=== PATIENT | male | born 1945 | race Caucasian/White ===

== ENCOUNTER 2018-11-01 15:56 | Emergency (ER) | payer OTHER ==
[2018-11-01 16:07] VITALS: RESP 18
[2018-11-01] MEDS ORDERED: LIDOCAINE 1% INJ 10MG/ML (20 ML MDV) SQ ONE (16:19)
--- NOTE | 2018-11-01 16:26 | ED ---
General Adult HPI - General Chief complaint: Wound/Laceration Stated complaint: Thumb laceration Time Seen by Provider: 11/01/18 16:08 Source: patient Mode of arrival: ambulatory Limitations: no limitations - History of Present Illness Initial comments: Patient is a 72-year-old male who presents with a chief complaint of a laceration of his left thumb, at the base. Lacerations 1 cm in length. Patient also complains of a spider bite to his right middle finger, dorsal aspect between the PIP and MCP joints. Laceration happened about 2 hours ago, the patient actually cut himself with a utility knife. His tetanus shot is up-to-date. The spider bite to the finger happened on Thursday. Since that time, the patient states that the swelling is gone down however is still red and tender. Patient denies any fever, chills, nausea or vomiting. - Related Data Home Medications Medication Instructions Recorded Confirmed Amitriptyline HCl [Elavil] 10 mg PO HS 01/03/15 03/08/15 Capsaicin Cream [Trixaicin Cream] 1 applic TOPICAL TID PRN 01/03/15 03/08/15 Donepezil HCl [Aricept] 5 mg PO HS 01/03/15 03/08/15 Gabapentin 1,200 mg PO TID 01/03/15 03/08/15 Ibuprofen [Motrin] 600 mg PO Q8HR PRN 01/03/15 03/08/15 Insulin NPH Human Isophane 50 unit SQ BID 01/03/15 03/08/15 [NovoLIN N] Isosorbide Mononitrate [Isosorbide 30 mg PO DAILY 01/03/15 03/08/15 Mononitrate ER] Lidocaine 5% Patch [Lidoderm] 1 patch TOPICAL DAILY 01/03/15 03/08/15 Losartan Potassium 50 mg PO DAILY 01/03/15 03/08/15 Metoprolol Tartrate [Lopressor] 25 mg PO BID 01/03/15 03/08/15 Nitroglycerin Sl Tabs [Nitrostat] 0.4 mg SUBLINGUAL Q5M PRN 01/03/15 03/08/15 Pravastatin Sodium [Pravachol] 20 mg PO DAILY 01/03/15 03/08/15 Ranitidine HCl [Zantac] 150 mg PO BID 01/03/15 03/08/15 Terazosin HCl 1 mg PO HS 01/03/15 03/08/15 Previous Rx's Medication Instructions Recorded Cyclobenzaprine [Flexeril] 10 mg PO TID #14 tab 03/09/15 Hydrocodone/Acetaminophen [[place] 1 each PO Q6HR PRN #20 tab 03/09/15 5-325] Sulfamethox-Tmp 800-160Mg [Bactrim 1 tab PO Q12HR #14 tab 11/01/18 DS 800-160 mg] Allergies Allergy/AdvReac Type Severity Reaction Status Date / Time morphine Allergy Rash/Hives Verified 03/08/15 19:36 Review of Systems ROS Statement: Those systems with pertinent positive or pertinent negative responses have been documented in the HPI. ROS Other: All systems not noted in ROS Statement are negative. Skin: Reports: lesions Past Medical History Past Medical History: Chest Pain / Angina, CVA/TIA, Dementia, Diabetes Mellitus, Hyperlipidemia, Hypertension, Myocardial Infarction ([place]) Additional Past Medical History / Comment(s): back pain, AAA Last Myocardial Infarction Date:: 2010 History of Any Multi-Drug Resistant Organisms: None Reported Past Surgical History: Back Surgery, Heart Catheterization With Stent, Joint Replacement, Orthopedic Surgery Past Anesthesia/Blood Transfusion Reactions: No Reported Reaction Date of Last Stent Placement:: 1999 Past Psychological History: Depression, PTSD Smoking Status: Former smoker Past Alcohol Use History: None Reported Past Drug Use History: None Reported General Exam Limitations: no limitations General appearance: alert, in no apparent distress Head exam: Present: atraumatic, normocephalic Eye exam: Present: normal appearance ENT exam: Present: normal exam Neck exam: Present: normal inspection Respiratory exam: Present: normal lung sounds bilaterally. Absent: respiratory distress, wheezes Cardiovascular Exam: Present: regular rate, normal rhythm GI/Abdominal exam: Present: soft. Absent: distended, tenderness Rectal exam: Present: deferred Extremities exam: Present: normal inspection, other (Patient is a one similar laceration at the base of the left thumb, on the dorsal side. He has cellulitis overlying the right middle finger on the dorsum.) Left Neuro motor exam: Present: wrist extension intact, thumb opposition intact Neurosensory exam: Present: radial nerve intact, ulnar nerve intact, median nerve intact Vascular: Present: normal capillary refill, radial pulse. Absent: vascular compromise Course Vital Signs 11/01/18 16:02 Temperature 97.6 F Pulse Rate 74 Respiratory 18 Rate Blood Pressure 120/73 O2 Sat by Pulse 95 Oximetry Procedures - Incision & Drainage Site: hand Size (cm): 1 Anesthetic Used: lidocaine 1% I&D Cleaning Method: Alcohol Wipe Sterile Field Used?: No Scalpel Used: #11 I&D Drainage Obtained: Pus, Blood Culture Obtained?: No Patient Tolerated Procedure: well - Laceration Laceration #1 Site: hand Description: linear Depth: simple, single layer Anesthetic Used: lidocaine 1% Anesthesia Technique: local infiltration Pre-repair: wound explored, irrigated extensively Type of Sutures: nylon Size of Sutures: 4-0 Number of Sutures: 2 Technique: simple, interrupted Patient Tolerated Procedure: well Medical Decision Making - Medical Decision Making Patient presents with a chief complaint of laceration and spider bite. On initial evaluation, vitals are stable, patient is in no acute distress. His tetanus status was updated last year. Patient will require repair the laceration, see procedure note. I&D was performed over the cellulitis, refer to procedure note. Patient started on doxycycline and given explicit instructions to return to the emergency department if the finger swelling or pain gets worse, he notes drainage, or notes tracking up his arm. patient discharged in stable condition. He verbalized understanding of discharge instructions. follow up with PCP in 1-2 days, return to the ED if symptoms worsen or change. Disposition Clinical Impression: Abscess of finger of right hand, Accidental laceration Disposition: HOME SELF-CARE Condition: Good Instructions (If sedation given, give patient instructions): Abscess Incision and Drainage (ED), Abscess (ED) Prescriptions: Sulfamethox-Tmp 800-160Mg [Bactrim DS 800-160 mg] 1 tab PO Q12HR #14 tab Is patient prescribed a controlled substance at d/c from ED?: No Referrals: [facility],Clinic [Primary Care Provider] - 1-2 days
[2018-11-01 17:33] VITALS: BP 118/96; PULSE 67; TEMP 98.4
== END 2018-11-01 17:32 | disposition home or self-care (01) ==
LOC: EC 15:56
DX: S61.012A Laceration without foreign body of left thumb without damage to nail, initial encounter (principal); L02.511 Cutaneous abscess of right hand; E11.9 Type 2 diabetes mellitus without complications; E78.5 Hyperlipidemia, unspecified; I10 Essential (primary) hypertension; I25.2 Old myocardial infarction; F03.90 Unspecified dementia, unspecified severity, without behavioral disturbance, psychotic disturbance, mood disturbance, and anxiety; F32.9 Major depressive disorder, single episode, unspecified; F43.10 Post-traumatic stress disorder, unspecified; Z86.73 Personal history of transient ischemic attack (TIA), and cerebral infarction without residual deficits; Z87.891 Personal history of nicotine dependence; Z79.4 Long term (current) use of insulin; Z79.899 Other long term (current) drug therapy; Z88.5 Allergy status to narcotic agent; Z95.5 Presence of coronary angioplasty implant and graft; W26.0XXA Contact with knife, initial encounter
CPT/HCPCS: 99282; 12001; 10060; J2001

== ENCOUNTER 2018-11-04 19:11 | Emergency (ER) | payer OTHER ==
[2018-11-04] MEDS ORDERED: FAMOTIDINE 20 MG TAB PO STA (21:35)
[2018-11-04] MEDS ORDERED: methylPREDNISolone SOD SUCCI 125 MG/2 ML VIAL IM ONE (21:35)
[2018-11-04] MEDS ORDERED: diphenhydrAMINE 50 MG/ML 1 ML VIAL IM STA (21:36)
--- NOTE | 2018-11-04 22:43 | ED ---
Skin/Abscess/FB HPI - General Chief complaint: Skin/Abscess/Foreign Body Stated complaint: med reaction-rash & blisters Source: patient Mode of arrival: ambulatory Limitations: no limitations - History of Present Illness Initial comments: 72-year-old male presenting today for chief complaint of rash. Patient states he was a start Bactrim for finger infection after laceration. He denies history of MRSA. Patient states that today he noticed some blisters on the skin at a random distribution of this chest and arm. Patient denies any tongue swelling or involvement lip swelling nausea vomiting abdominal pain difficulty breathing compressive symptoms or fever. She states the lesions are itchy. Patient states he feels fine. Remaining review of system negative. - Related Data Home Medications Medication Instructions Recorded Confirmed Amitriptyline HCl [Elavil] 10 mg PO HS 01/03/15 03/08/15 Capsaicin Cream [Trixaicin Cream] 1 applic TOPICAL TID PRN 01/03/15 03/08/15 Donepezil HCl [Aricept] 5 mg PO HS 01/03/15 03/08/15 Gabapentin 1,200 mg PO TID 01/03/15 03/08/15 Ibuprofen [Motrin] 600 mg PO Q8HR PRN 01/03/15 03/08/15 Insulin NPH Human Isophane 50 unit SQ BID 01/03/15 03/08/15 [NovoLIN N] Isosorbide Mononitrate [Isosorbide 30 mg PO DAILY 01/03/15 03/08/15 Mononitrate ER] Lidocaine 5% Patch [Lidoderm] 1 patch TOPICAL DAILY 01/03/15 03/08/15 Losartan Potassium 50 mg PO DAILY 01/03/15 03/08/15 Metoprolol Tartrate [Lopressor] 25 mg PO BID 01/03/15 03/08/15 Nitroglycerin Sl Tabs [Nitrostat] 0.4 mg SUBLINGUAL Q5M PRN 01/03/15 03/08/15 Pravastatin Sodium [Pravachol] 20 mg PO DAILY 01/03/15 03/08/15 Ranitidine HCl [Zantac] 150 mg PO BID 01/03/15 03/08/15 Terazosin HCl 1 mg PO HS 01/03/15 03/08/15 Previous Rx's Medication Instructions Recorded Cyclobenzaprine [Flexeril] 10 mg PO TID #14 tab 03/09/15 Hydrocodone/Acetaminophen [[place] 1 each PO Q6HR PRN #20 tab 03/09/15 5-325] Sulfamethox-Tmp 800-160Mg [Bactrim 1 tab PO Q12HR #14 tab 11/01/18 DS 800-160 mg] Cephalexin [Keflex] 500 mg PO Q6HR 7 Days #28 cap 11/04/18 diphenhydrAMINE [Benadryl] 25 mg PO BID PRN 5 Days #10 capsule 11/04/18 predniSONE 20 mg PO DAILY 5 Days #5 tab 11/04/18 Allergies Allergy/AdvReac Type Severity Reaction Status Date / Time morphine Allergy Rash/Hives Verified 03/08/15 19:36 Review of Systems ROS Statement: Those systems with pertinent positive or pertinent negative responses have been documented in the HPI. ROS Other: All systems not noted in ROS Statement are negative. Past Medical History Past Medical History: Chest Pain / Angina, CVA/TIA, Dementia, Diabetes Mellitus, Hyperlipidemia, Hypertension, Myocardial Infarction ([place]) Additional Past Medical History / Comment(s): back pain, AAA Last Myocardial Infarction Date:: 2010 History of Any Multi-Drug Resistant Organisms: None Reported Past Surgical History: Back Surgery, Heart Catheterization With Stent, Joint Replacement, Orthopedic Surgery Past Anesthesia/Blood Transfusion Reactions: No Reported Reaction Date of Last Stent Placement:: 1999 Past Psychological History: Depression, PTSD Smoking Status: Former smoker Past Alcohol Use History: None Reported Past Drug Use History: None Reported General Exam - General Exam Comments Initial Comments: General: The patient is awake and alert, in no distress, and does not appear acutely ill. Eye: Pupils are equal, round and reactive to light, extra-ocular movements are intact. No nystagmus. There is normal conjunctiva bilaterally. No signs of icterus. Ears, nose, mouth and throat: There are moist mucous membranes and no oral lesions. Neck: The neck is supple, there is no tenderness or JVD. Cardiovascular: There is a regular rate and rhythm. No murmur, rub or gallop is appreciated. Respiratory: Lungs are clear to auscultation, respirations are non-labored, breath sounds are equal. No wheezes, stridor, rales, or rhonchi. Gastrointestinal: Soft, non-distended, non-tender abdomen without masses or organomegaly noted. There is no rebound or guarding present. Musculoskeletal: Normal ROM, no tenderness. Strength 5/5. Sensation intact. Pulses equal bilaterally 2+. Neurological: A&O x 3. CN II-XII intact, There are no obvious motor or sensory deficits. Coordination appears grossly intact. Speech is normal. Skin: Skin is warm and dry. Erythematous wheals and random distribution of her chest and back. On upper extremity bilaterally. Small blister left shoulder. No other blistered lesions. Psychiatric: Cooperative, appropriate mood & affect, normal judgment. Limitations: no limitations Course Vital Signs 11/04/18 11/04/18 20:04 22:55 Temperature 97.6 F 98.2 F Pulse Rate 74 69 Respiratory 20 18 Rate Blood Pressure 124/77 124/82 O2 Sat by Pulse 96 97 Oximetry Medical Decision Making - Medical Decision Making 72-year-old male presented for antibiotic drug reaction. Patient denies any other new medications. Patient states the areas are itchy. Patient does not show any signs of anaphylaxis. No oral involvement. Patient has no vomiting abdominal pain diarrhea. No fever. Patient appears well no signs of acute distress. Patient is a diabetic. Patient was given steroids I did educate. Patient on risk of increased blood glucose. Patient states he will monitor her glucose more closely at home. Patient was given Benadryl and Pepcid. Patient states he no longer has itching. Patient was monitored in the emergency department. Patient symptoms have not worsened. Slight improvement of rash. At this time after discussing case by attending provider Dr. Ashford I feel patient is stable for discharge with outpatient priamary f/u, discontinuation of medication, new medications for infection, and use of benadryl, pepcid, a low dose steroid. If glucose is uncontrolled on steroid and rash is improving i recommended not completing steroid course. Return parameters were discussed at length the patient which included worsening rash or any signs of compressive symptoms or mouth involvement she verbalizes understood appear patient was discharged appearing well Disposition Clinical Impression: Allergic reaction, Allergy to antibiotic Disposition: HOME SELF-CARE Condition: Good Instructions (If sedation given, give patient instructions): Antibiotic Medication Allergy (ED) Additional Instructions: Please use medication as discussed. Please follow-up with family doctor in the next 24 hours, please discontinue BACTRIM, please use keflex. If you finger infection is worsening, rash is worsening, increasing number of lesions, lip/tongue swelling, vomiting/diarrhea or difficulty breathing please present immediately to the emergency department. Please return to emergency room if the symptoms increase or worsen or for any other concerns. Prescriptions: diphenhydrAMINE [Benadryl] 25 mg PO BID PRN 5 Days #10 capsule PRN Reason: Itching Cephalexin [Keflex] 500 mg PO Q6HR 7 Days #28 cap predniSONE 20 mg PO DAILY 5 Days #5 tab Is patient prescribed a controlled substance at d/c from ED?: No Referrals: [facility],Clinic [Primary Care Provider] - 1-2 days Time of Disposition: 22:43
[2018-11-04 22:56] VITALS: BP 124/82; PULSE 69; RESP 18; TEMP 98.2
== END 2018-11-04 22:55 | disposition home or self-care (01) ==
LOC: EC 19:11
DX: T36.95XA Adverse effect of unspecified systemic antibiotic, initial encounter (principal); E11.9 Type 2 diabetes mellitus without complications; I10 Essential (primary) hypertension; E78.5 Hyperlipidemia, unspecified; I25.2 Old myocardial infarction; Z79.4 Long term (current) use of insulin; Z79.899 Other long term (current) drug therapy; Z88.5 Allergy status to narcotic agent; Z87.891 Personal history of nicotine dependence; Z95.5 Presence of coronary angioplasty implant and graft; Z86.73 Personal history of transient ischemic attack (TIA), and cerebral infarction without residual deficits
CPT/HCPCS: 99282; 96372 ×2; J1200; J2930

== ENCOUNTER 2023-04-04 19:29 | Emergency (ER) | payer OTHER ==
--- NOTE | 2023-04-04 20:54 | XR ---
EXAMINATION TYPE: XR chest 2V DATE OF EXAM: 04/04/2023 COMPARISON: 01/03/2015 INDICATION: Shortness of breath TECHNIQUE: Frontal and lateral views of the chest are obtained. FINDINGS: The heart size is normal. The pulmonary vasculature is normal. The lungs are clear. IMPRESSION: 1. No acute pulmonary process.
--- NOTE | 2023-04-04 23:33 | ED ---
URI HPI - General Chief Complaint: Upper Respiratory Infection Stated Complaint: SOB/Vomiting Time Seen by Provider: 04/04/23 21:48 Source: patient Mode of arrival: wheelchair Limitations: no limitations - History of Present Illness Initial Comments: This patient is a 77-year-old man who presents to evaluation for constellation of symptoms that had started on Thursday. The patient states that he began having a little bit of cough and rhinorrhea. He then noted onset as well of fever, body aches. He did have an episode of vomiting. He states he does tolerate oral intake. Patient denies dyspnea. Cough is nonproductive. No change in bowel movements or urination. MD Complaint: fever, cough, nasal congestion Onset/Timin -: days(s) Consistency: constant Improves With: nothing Worsens With: nothing Associated Symptoms: myalgias, vomiting Treatments Prior to Arrival: Acetaminophen - Related Data Home Medications Medication Instructions Recorded Confirmed Amitriptyline HCl [Elavil] 10 mg PO HS 01/03/15 03/08/15 Capsaicin Cream [Trixaicin Cream] 1 applic TOPICAL TID PRN 01/03/15 03/08/15 Donepezil HCl [Aricept] 5 mg PO HS 01/03/15 03/08/15 Gabapentin 1,200 mg PO TID 01/03/15 03/08/15 Ibuprofen [Motrin] 600 mg PO Q8HR PRN 01/03/15 03/08/15 Insulin NPH Human Isophane 50 unit SQ BID 01/03/15 03/08/15 [NovoLIN N] Isosorbide Mononitrate [Isosorbide 30 mg PO DAILY 01/03/15 03/08/15 Mononitrate ER] Lidocaine 5% Patch [Lidoderm] 1 patch TOPICAL DAILY 01/03/15 03/08/15 Losartan Potassium 50 mg PO DAILY 01/03/15 03/08/15 Metoprolol Tartrate [Lopressor] 25 mg PO BID 01/03/15 03/08/15 Nitroglycerin Sl Tabs [Nitrostat] 0.4 mg SUBLINGUAL Q5M PRN 01/03/15 03/08/15 Pravastatin Sodium [Pravachol] 20 mg PO DAILY 01/03/15 03/08/15 Ranitidine HCl [Zantac] 150 mg PO BID 01/03/15 03/08/15 Terazosin HCl 1 mg PO HS 01/03/15 03/08/15 Previous Rx's Medication Instructions Recorded Cyclobenzaprine [Flexeril] 10 mg PO TID #14 tab 03/09/15 Hydrocodone/Acetaminophen [[place] 1 each PO Q6HR PRN #20 tab 03/09/15 5-325] Sulfamethox-Tmp 800-160Mg [Bactrim 1 tab PO Q12HR #14 tab 11/01/18 DS 800-160 mg] Cephalexin [Keflex] 500 mg PO Q6HR 7 Days #28 cap 11/04/18 diphenhydrAMINE [Benadryl] 25 mg PO BID PRN 5 Days #10 capsule 11/04/18 predniSONE [Deltasone] 20 mg PO DAILY 5 Days #5 tab 11/04/18 Nirmatrelvir/Ritonavir [Paxlovid 1 each PO ONCE #1 pack 04/04/23 2X150 mg-100 mg (Eua)] Allergies Allergy/AdvReac Type Severity Reaction Status Date / Time morphine Allergy Rash/Hives Verified 03/08/15 19:36 Review of Systems ROS Statement: Those systems with pertinent positive or pertinent negative responses have been documented in the HPI. ROS Other: All systems not noted in ROS Statement are negative. Constitutional: Reports: fever. Denies: chills, weakness ENT: Reports: congestion Respiratory: Reports: cough. Denies: dyspnea, wheezes Cardiovascular: Denies: chest pain, palpitations, edema, syncope Gastrointestinal: Reports: vomiting. Denies: abdominal pain, diarrhea, constipation Genitourinary: Denies: dysuria, hematuria Musculoskeletal: Reports: myalgia. Denies: back pain Skin: Denies: rash Neurological: Reports: headache. Denies: weakness, numbness Past Medical History Past Medical History: Chest Pain / Angina, CVA/TIA, Dementia, Diabetes Mellitus, Hyperlipidemia, Hypertension, Myocardial Infarction ([place]) Additional Past Medical History / Comment(s): back pain, AAA Last Myocardial Infarction Date:: 2010 History of Any Multi-Drug Resistant Organisms: None Reported Past Surgical History: Back Surgery, Heart Catheterization With Stent, Joint Replacement, Orthopedic Surgery Past Anesthesia/Blood Transfusion Reactions: No Reported Reaction Date of Last Stent Placement:: 1999 Past Psychological History: Depression, PTSD Past Alcohol Use History: None Reported Past Drug Use History: None Reported General Exam Limitations: no limitations General appearance: alert, in no apparent distress Head exam: Present: atraumatic, normocephalic Eye exam: Present: normal appearance. Absent: scleral icterus, conjunctival injection ENT exam: Present: normal oropharynx Neck exam: Present: normal inspection, full ROM Respiratory exam: Present: normal lung sounds bilaterally. Absent: respiratory distress, wheezes, rales, rhonchi, stridor, accessory muscle use Cardiovascular Exam: Present: regular rate, normal rhythm, normal heart sounds. Absent: systolic murmur, diastolic murmur, rubs, gallop GI/Abdominal exam: Present: soft. Absent: distended, tenderness, guarding, rebound, rigid, mass Extremities exam: Present: normal inspection, normal capillary refill. Absent: pedal edema, calf tenderness Back exam: Present: normal inspection Neurological exam: Present: alert Skin exam: Present: warm, dry, intact, normal color. Absent: rash Course Vital Signs 04/04/23 04/04/23 04/04/23 19:34 22:30 23:21 Temperature 101.1 F H Pulse Rate 97 116 H Respiratory 18 22 19 Rate Blood Pressure 169/81 101/81 O2 Sat by Pulse 97 93 L Oximetry 04/04/23 23:26 Temperature 100.4 F H Pulse Rate Respiratory Rate Blood Pressure O2 Sat by Pulse Oximetry Medical Decision Making - Medical Decision Making The patient had chest x-ray which I interpreted as negative for acute infiltrate, pneumothorax, congestive heart failure Was pt. sent in by a medical professional or institution (, PA, ANALYTICS ARCHITECT, urgent care, hospital, or [facility]...) When possible be specific @ -[No] Did you speak to anyone other than the patient for history (EMS, parent, family, police, friend...)? What history was obtained from this source @ -[No] Did you review nursing and triage notes (agree or disagree)? Why? @ -[I reviewed and agree with nursing and triage notes] Were old charts reviewed (outside hosp., previous admission, EMS record, old EKG, old radiological studies, urgent care reports/EKG's, [facility] records)? Report findings @ -[No old charts were reviewed] Differential Diagnosis (chest pain, altered mental status, abdominal pain women, abdominal pain men, vaginal bleeding, weakness, fever, dyspnea, syncope, headache, dizziness, GI bleed, back pain, seizure, CVA, palpatations, mental health, musculoskeletal)? @ -[Differential Dyspnea: Coronary syndrome, arrhythmia, tamponade, asthma, COPD, pulmonary embolism, pneumonia, pneumothorax, pulmonary effusion, anaphylaxis, diabetic ketoacidosis, flailed chest, pulmonary contusion, diaphragmatic rupture, anemia, neuromuscular, this is not meant to be an all-inclusive list. EKG interpreted by me (3pts min.). @ -[As above] X-rays interpreted by me (1pt min.). @ -[I interpreted as above CT interpreted by me (1pt min.). @ -[None done] U/S interpreted by me (1pt. min.). @ -[None done] What testing was considered but not performed or refused? (CT, X-rays, U/S, labs)? Why? @ -[None] What meds were considered but not given or refused? Why? @ -[None] Did you discuss the management of the patient with other professionals (professionals i.e. , PA, ANALYTICS ARCHITECT, lab, RT, psych nurse, social secretary, shot packer, teacher, house officer, case coordinator)? Give summary @ -[No] Was smoking cessation discussed for >3mins.? @ -[No] Was critical care preformed (if so, how long)? @ -[No] Were there social determinants of health that impacted care today? How? (Homelessness, low income, unemployed, alcoholism, drug addiction, transportation, low edu. Level, literacy, decrease access to med. care, detention, rehab)? @ -[No] Was there de-escalation of care discussed even if they declined (Discuss DNR or withdrawal of care, Hospice)? DNR status @ -[No] What co-morbidities impacted this encounter? (DM, HTN, Smoking, COPD, CAD, Cancer, CVA, ARF, Chemo, Hep., AIDS, mental health diagnosis, sleep apnea, morbid obesity)? @ -[None] Was patient admitted / discharged? Hospital course, mention meds given and route, prescriptions, significant lab abnormalities, going to OR and other pertinent info. @ -[Patient is 77-year-old man who was found to have COVID-19 infection. The patient saturation numbers are acceptable and he is not feeling dyspneic. We discussed appropriate further care and follow-up and he would like to try outpatient medical treatment. Undiagnosed new problem with uncertain prognosis? @ -[No] Drug Therapy requiring intensive monitoring for toxicity (Heparin, Nitro, Insulin, Cardizem)? @ -[No] Were any procedures done? @ -[No] Diagnosis/symptom? @ -[Acute COVID-19 infection Acute, or Chronic, or Acute on Chronic? @ -[Acute Uncomplicated (without systemic symptoms) or Complicated (systemic symptoms)? @ -Uncomplicated Side effects of treatment? @ -[No] Exacerbation, Progression, or Severe Exacerbation? @ -[No] Poses a threat to life or bodily function? How? (Chest pain, [place], [place], pneumonia, PE, COPD, DKA, ARF, appy, cholecystitis, CVA, Diverticulitis, Homicidal, Dia cidal, threat to staff... and all critical care pts) @ -[Yes, Covid infection can progress to become life-threatening, we discussed the appropriate outpatient care as well as return parameters. - Lab Data Lab Results 04/04/23 Range/Units 19:41 Influenza Type A (PCR) Not Detected (Not Detectd) Influenza Type B (PCR) Not Detected (Not Detectd) RSV (PCR) Not Detected (Not Detectd) SARS-CoV-2 (PCR) Detected A (Not Detectd) Disposition Clinical Impression: COVID-19 Disposition: HOME SELF-CARE Condition: Good Prescriptions: Nirmatrelvir/Ritonavir [Paxlovid 2X150 mg-100 mg (Eua)] 1 each PO ONCE #1 pack Is patient prescribed a controlled substance at d/c from ED?: No Referrals: [facility],Clinic [Primary Care Provider] - 1-2 days
[2023-04-04 23:38] VITALS: BP 101/81; PULSE 116; RESP 19; TEMP 100.4
== END 2023-04-04 23:27 | disposition home or self-care (01) ==
LOC: EC 19:29
DX: U07.1 COVID-19 (principal); E11.9 Type 2 diabetes mellitus without complications; I10 Essential (primary) hypertension; I25.2 Old myocardial infarction; E78.5 Hyperlipidemia, unspecified; F03.90 Unspecified dementia, unspecified severity, without behavioral disturbance, psychotic disturbance, mood disturbance, and anxiety; F32.A Depression, unspecified; Z79.4 Long term (current) use of insulin; Z79.899 Other long term (current) drug therapy; Z88.5 Allergy status to narcotic agent; Z86.73 Personal history of transient ischemic attack (TIA), and cerebral infarction without residual deficits; Z95.5 Presence of coronary angioplasty implant and graft
CPT/HCPCS: 71046; 87636; 99285

== ENCOUNTER 2023-05-05 18:07 | Emergency (ER) | payer OTHER ==
--- NOTE | 2023-05-05 18:49 | ED ---
General Adult HPI - General Source: RN notes reviewed <Pita Mendoza - Last Filed: 05/05/23 18:48> <Sarah Salazar - Last Filed: 05/05/23 23:07> - General Stated complaint: dizzy passing out when standing Time Seen by Provider: 05/05/23 18:48 - History of Present Illness Initial comments: 77-year-old male with a past medical history significant for CVA presents the emergency department with a chief complaint of syncope. Patient reports that he had a syncopal episode where he was unresponsive for approximately 1 minute. He reports that he still feels persistent dizziness. Denies hitting his head. He does report he is on Eliquis. (Pita Mendoza) 77-year-old male presenting with chief complaint of syncopal episode. Patient states that he was walking and talking to his grandson when he started to feel dizzy, he states that he was able to somewhat catch himself when he was falling. He denies any head injury, patient is on eliquis. Patient reports dizziness with turning his head or transferring from a laying to sitting position. No chest pain or difficulty breathing. No numbness, tingling, palpitations, nausea, vomiting, headache, vision or hearing changes. (Sarah Salazar) - Related Data Home Medications Medication Instructions Recorded Confirmed Amitriptyline HCl [Elavil] 10 mg PO HS 01/03/15 03/08/15 Capsaicin Cream [Trixaicin Cream] 1 applic TOPICAL TID PRN 01/03/15 03/08/15 Donepezil HCl [Aricept] 5 mg PO HS 01/03/15 03/08/15 Gabapentin 1,200 mg PO TID 01/03/15 03/08/15 Ibuprofen [Motrin] 600 mg PO Q8HR PRN 01/03/15 03/08/15 Insulin NPH Human Isophane 50 unit SQ BID 01/03/15 03/08/15 [NovoLIN N] Isosorbide Mononitrate [Isosorbide 30 mg PO DAILY 01/03/15 03/08/15 Mononitrate ER] Lidocaine 5% Patch [Lidoderm] 1 patch TOPICAL DAILY 01/03/15 03/08/15 Losartan Potassium 50 mg PO DAILY 01/03/15 03/08/15 Metoprolol Tartrate [Lopressor] 25 mg PO BID 01/03/15 03/08/15 Nitroglycerin Sl Tabs [Nitrostat] 0.4 mg SUBLINGUAL Q5M PRN 01/03/15 03/08/15 Pravastatin Sodium [Pravachol] 20 mg PO DAILY 01/03/15 03/08/15 Ranitidine HCl [Zantac] 150 mg PO BID 01/03/15 03/08/15 Terazosin HCl 1 mg PO HS 01/03/15 03/08/15 Previous Rx's Medication Instructions Recorded Cyclobenzaprine [Flexeril] 10 mg PO TID #14 tab 03/09/15 Hydrocodone/Acetaminophen [[place] 1 each PO Q6HR PRN #20 tab 03/09/15 5-325] Sulfamethox-Tmp 800-160Mg [Bactrim 1 tab PO Q12HR #14 tab 11/01/18 DS 800-160 mg] Cephalexin [Keflex] 500 mg PO Q6HR 7 Days #28 cap 11/04/18 diphenhydrAMINE [Benadryl] 25 mg PO BID PRN 5 Days #10 capsule 11/04/18 predniSONE [Deltasone] 20 mg PO DAILY 5 Days #5 tab 11/04/18 Nirmatrelvir/Ritonavir [Paxlovid 1 each PO ONCE #1 pack 04/04/23 2X150 mg-100 mg (Eua)] Meclizine [Antivert] 25 mg PO BID PRN #10 tab 05/05/23 Allergies Allergy/AdvReac Type Severity Reaction Status Date / Time morphine Allergy Rash/Hives Verified 03/08/15 19:36 oxycodone AdvReac Confusion Verified 05/05/23 19:30 Review of Systems ROS Other: All systems not noted in ROS Statement are negative. <Pita Mendoza - Last Filed: 05/05/23 18:48> ROS Other: All systems not noted in ROS Statement are negative. <Sarah Salazar - Last Filed: 05/05/23 23:07> ROS Statement: Those systems with pertinent positive or pertinent negative responses have been documented in the HPI. Past Medical History Past Medical History: Chest Pain / Angina, CVA/TIA, Dementia, Diabetes Mellitus, Hyperlipidemia, Hypertension, Myocardial Infarction (OK) Additional Past Medical History / Comment(s): back pain, AAA Last Myocardial Infarction Date:: 2010 History of Any Multi-Drug Resistant Organisms: None Reported Past Surgical History: Back Surgery, Heart Catheterization With Stent, Joint Replacement, Orthopedic Surgery Past Anesthesia/Blood Transfusion Reactions: No Reported Reaction Date of Last Stent Placement:: 1999 Past Psychological History: Depression, PTSD Past Alcohol Use History: None Reported Past Drug Use History: None Reported <Pita Mendoza - Last Filed: 05/05/23 18:48> General Exam <Pita Mendoza - Last Filed: 05/05/23 18:48> Limitations: no limitations General appearance: alert, in no apparent distress Head exam: Present: atraumatic, normocephalic, normal inspection Eye exam: Present: normal appearance, EOMI Neck exam: Present: normal inspection, full ROM Respiratory exam: Present: normal lung sounds bilaterally. Absent: respiratory distress, wheezes, rales, rhonchi, stridor Cardiovascular Exam: Present: regular rate, normal rhythm, normal heart sounds. Absent: systolic murmur, diastolic murmur, rubs, gallop, clicks Neurological exam: Present: alert, oriented X3 Expanded Speech: Present: fluid speech Eye Response: (4) open spontaneously Motor Response: (6) obeys commands Verbal Response: (5) oriented Lexi Total: 15 Psychiatric exam: Present: normal affect, normal mood Skin exam: Present: warm, dry, intact, normal color. Absent: rash <Sarah Salazar - Last Filed: 05/05/23 23:07> - General Exam Comments Initial Comments: Visual Physical Exam Vital signs reviewed General: Well-appearing, nontoxic, no acute distress. Head: Normocephalic, atraumatic Eyes: PERRLA, EOMI ENT: Airway patent Chest: Nonlabored breathing Skin: No visual rash, normal skin tone Neuro: Alert and oriented 3 Musculoskeletal: No gross abnormalities (Pita Mendoza) Course Vital Signs 05/05/23 05/05/23 19:28 22:41 Temperature 97.5 F L Pulse Rate 71 Pulse Rate [ 65 Pulse Oximetery ] Respiratory 18 18 Rate Blood Pressure 137/76 Blood Pressure 129/69 [Right Arm Sitting] Blood Pressure 135/68 [Right Arm Standing] Blood Pressure 126/69 [Right Arm Supine] O2 Sat by Pulse 97 98 Oximetry EKG Findings - EKG Comments: EKG Findings:: Sinus rhythm ventricular rate 66. HI interval 136. QRS 94. QT 373. QTC 386. <Sarah Salazar - Last Filed: 05/05/23 23:07> Medical Decision Making <Pita Mendoza - Last Filed: 05/05/23 18:48> - Lab Data Result diagrams: 05/05/23 19:32 05/05/23 19:32 <Sarah Salazar - Last Filed: 05/05/23 23:07> - Medical Decision Making I performed the quick note portion of this exam, verbal signature Pita Mendoza PA-C (Pita Mendoza) Was pt. sent in by a medical professional or institution ([facility], [facility], urgent care, hospital, or alf...) When possible be specific @ -No Did you speak to anyone other than the patient for history (EMS, parent, family, police, friend...)? What history was obtained from this source @ -Family at bedside supplemented history Did you review nursing and triage notes (agree or disagree)? Why? @ -I reviewed and agree with nursing and triage notes Were old charts reviewed (outside hosp., previous admission, EMS record, old E KG, old radiological studies, urgent care reports/EKG's, alf records)? Report findings @ -No old charts were reviewed Differential Diagnosis (chest pain, altered mental status, abdominal pain women, abdominal pain men, vaginal bleeding, weakness, fever, dyspnea, syncope, headache, dizziness, GI bleed, back pain, seizure, CVA, palpatations, mental hea lth, musculoskeletal)? @ -MDM Differential Syncope: Valvular disease, hypertrophic cardiomyopathy, pulmonary embolism, tamponade, tachycardia, bradycardia, OK, hypovolemia, hemorrhage, dissection, anemia, intracranial hemorrhage, seizure, hypoglycemia, carbon monoxide poisoning this is not meant to be an all-inclusive list. EKG interpreted by me (3pts min.). @ -As above X-rays interpreted by me (1pt min.). @ -chest x-ray shows no acute process CT interpreted by me (1pt min.). @ -CT shows no acute intracranial process or cervical spine fracture U/S interpreted by me (1pt. min.). @ -None done What testing was considered but not performed or refused? (CT, X-rays, U/S, labs)? Why? @ -None What meds were considered but not given or refused? Why? @ -None Did you discuss the management of the patient with other professionals (professionals i.e. , PA, [facility], lab, RT, psych nurse, manager social responsibility, safety and occupational health manager, teacher, administrative officer, embedded case manager)? Give summary @ -No Was smoking cessation discussed for >3mins.? @ -No Was critical care preformed (if so, how long)? @ -No Were there social determinants of health that impacted care today? How? (Homelessness, low income, unemployed, alcoholism, drug addiction, transp ortation, low edu. Level, literacy, decrease access to med. care, long term, rehab)? @ -No Was there de-escalation of care discussed even if they declined (Discuss DNR or withdrawal of care, Hospice)? DNR status @ -No What co-morbidities impacted this encounter? (DM, HTN, Smoking, COPD, CAD, Cancer, CVA, ARF, Chemo, Hep., AIDS, mental health diagnosis, sleep apnea, morbid obesity)? @ -None Was patient admitted / discharged? Hospital course, mention meds given and route, prescriptions, significant lab abnormalities, going to OR and other pertinent info. @ -77-year-old male presenting for evaluation after syncopal episode. He reports dizziness with moving his hand. History and physical are conducted. GCS 15. Negative CT of the brain and cervical spine. Negative chest x-ray. EKG shows sinus rhythm. No leukocytosis or anemia. Negative troponin. Remainder of lab work is essentially unremarkable. Negative orthostatic vitals. Patient reports improvement in his dizziness after meclizine. Patient and family are educated on today's findings. He'll be sent home with prescription for meclizine and instructed to follow-up with his PCP. Follow-up with PCP. Report back to ER with any new or worsening symptoms. Discussed return parame ters and answered all questions. Patient conveyed verbal understanding and agreed to the plan. I discussed this case in detail with my attending Dr. Mayes Undiagnosed new problem with uncertain prognosis? @ -No Drug Therapy requiring intensive monitoring for toxicity (Heparin, Nitro, Insulin, Cardizem)? @ -No Were any procedures done? @ -No Diagnosis/symptom? @ -Syncope, vertigo Acute, or Chronic, or Acute on Chronic? @ -Acute Uncomplicated (without systemic symptoms) or Complicated (systemic symptoms)? @ -uncomplicated Side effects of treatment? @ -No Exacerbation, Progression, or Severe Exacerbation? @ -No Poses a threat to life or bodily function? How? (Chest pain, [place], OK, pneumonia, PE, COPD, DKA, ARF, appy, cholecystitis, CVA, Diverticulitis, Homicidal, Suic idal, threat to staff... and all critical care pts) @ -Low likelihood (Sarah Salazar) - Lab Data Lab Results 05/05/23 05/05/23 05/05/23 Range/Units 19:32 19:32 19:32 WBC 4.8 (3.8-10.6) k/uL RBC 4.80 (4.30-5.90) m/uL Hgb 14.1 (13.0-17.5) gm/dL Hct 42.7 (39.0-53.0) % MCV 88.8 (80.0-100.0) fL MCH 29.4 (25.0-35.0) pg MCHC 33.1 (31.0-37.0) g/dL RDW 15.2 (11.5-15.5) % Plt Count 263 (150-450) k/uL MPV 7.2 Neutrophils % 65 % Lymphocytes % 25 % Monocytes % 5 % Eosinophils % 3 % Basophils % 0 % Neutrophils # 3.1 (1.3-7.7) k/uL Lymphocytes # 1.2 (1.0-4.8) k/uL Monocytes # 0.2 (0-1.0) k/uL Eosinophils # 0.1 (0-0.7) k/uL Basophils # 0.0 (0-0.2) k/uL PT 10.7 (10.0-12.5) sec INR 1.0 (<1.2) APTT 25.7 (22.0-30.0) sec Sodium (137-145) mmol/L Potassium (3.5-5.1) mmol/L Chloride (98-107) mmol/L Carbon Dioxide (22-30) mmol/L Anion Gap mmol/L BUN (9-20) mg/dL Creatinine (0.66-1.25) mg/dL Est GFR (CKD-EPI)AfAm (>60 ml/min/1.73 sqM) Est GFR (CKD-EPI)NonAf (>60 ml/min/1.73 sqM) Glucose (74-99) mg/dL Plasma Lactic Acid [place] (0.7-2.0) mmol/L Calcium (8.4-10.2) mg/dL Phosphorus (2.5-4.5) mg/dL Magnesium (1.6-2.3) mg/dL Total Bilirubin (0.2-1.3) mg/dL AST (17-59) U/L ALT (4-49) U/L Alkaline Phosphatase (38-126) U/L Troponin I (0.000-0.034) ng/mL Total Protein (6.3-8.2) g/dL Albumin (3.5-5.0) g/dL Urine Color Yellow Urine Appearance Clear (Clear) Urine pH 5.5 (5.0-8.0) Ur Specific [place] 1.020 (1.001-1.035) Urine Protein Negative (Negative) Urine Glucose (UA) 4+ (Negative) Urine Ketones Negative (Negative) Urine Blood Negative (Negative) Urine Nitrite Negative (Negative) Urine Bilirubin Negative (Negative) Urine Urobilinogen <2.0 (<2.0) mg/dL Ur Leukocyte Esterase Moderate (Negative) Urine RBC 4 (0-5) /hpf Urine WBC 9 H (0-5) /hpf Ur Squamous Epith Cells 2 (0-4) /hpf Urine Mucus Rare H (None) /hpf 05/05/23 05/05/23 05/05/23 Range/Units 19:32 19:32 19:32 WBC (3.8-10.6) k/uL RBC (4.30-5.90) m/uL Hgb (13.0-17.5) gm/dL Hct (39.0-53.0) % MCV (80.0-100.0) fL MCH (25.0-35.0) pg MCHC (31.0-37.0) g/dL RDW (11.5-15.5) % Plt Count (150-450) k/uL MPV Neutrophils % % Lymphocytes % % Monocytes % % Eosinophils % % Basophils % % Neutrophils # (1.3-7.7) k/uL Lymphocytes # (1.0-4.8) k/uL Monocytes # (0-1.0) k/uL Eosinophils # (0-0.7) k/uL Basophils # (0-0.2) k/uL PT (10.0-12.5) sec INR (<1.2) APTT (22.0-30.0) sec Sodium 137 (137-145) mmol/L Potassium 4.1 (3.5-5.1) mmol/L Chloride 101 (98-107) mmol/L Carbon Dioxide 23 (22-30) mmol/L Anion Gap 13 mmol/L BUN 13 (9-20) mg/dL Creatinine 0.70 (0.66-1.25) mg/dL Est GFR (CKD-EPI)AfAm >90 (>60 ml/min/1.73 sqM) Est GFR (CKD-EPI)NonAf >90 (>60 ml/min/1.73 sqM) Glucose 144 H (74-99) mg/dL Plasma Lactic Acid [place] 1.1 (0.7-2.0) mmol/L Calcium 8.9 (8.4-10.2) mg/dL Phosphorus 4.5 (2.5-4.5) mg/dL Magnesium 2.0 (1.6-2.3) mg/dL Total Bilirubin 0.8 (0.2-1.3) mg/dL AST 24 (17-59) U/L ALT 18 (4-49) U/L Alkaline Phosphatase 99 (38-126) U/L Troponin I <0.012 (0.000-0.034) ng/mL Total Protein 7.0 (6.3-8.2) g/dL Albumin 4.2 (3.5-5.0) g/dL Urine Color Urine Appearance (Clear) Urine pH (5.0-8.0) Ur Specific [place] (1.001-1.035) Urine Protein (Negative) Urine Glucose (UA) (Negative) Urine Ketones (Negative) Urine Blood (Negative) Urine Nitrite (Negative) Urine Bilirubin (Negative) Urine Urobilinogen (<2.0) mg/dL Ur Leukocyte Esterase (Negative) Urine RBC (0-5) /hpf Urine WBC (0-5) /hpf Ur Squamous Epith Cells (0-4) /hpf Urine Mucus (None) /hpf Disposition <Pita Mendoza - Last Filed: 05/05/23 18:48> Is patient prescribed a controlled substance at d/c from ED?: No Time of Disposition: 23:03 <Sarah Salazar - Last Filed: 05/05/23 23:07> Clinical Impression: Vertigo Disposition: HOME SELF-CARE Condition: Good Instructions (If sedation given, give patient instructions): Syncope (ED), Benign Paroxysmal Positional Vertigo (ED) Additional Instructions: Follow-up with PCP. Report back to ER with any new or worsening symptoms. Take medication as prescribed. Prescriptions: Meclizine [Antivert] 25 mg PO BID PRN #10 tab PRN Reason: Vertigo Referrals: [facility] [Primary Care Provider] - 1-2 days
[2023-05-05 19:47] VITALS: RESP 18; TEMP 97.5
[2023-05-05 20:04] LABS: Basophils % (A) 0 %; Eosinophils # (A) 0.1 k/uL (0-0.7); Eosinophils % (A) 3 %; HCT 42.7 % (39.0-53.0); HGB 14.1 gm/dL (13.0-17.5); Lymphocytes # (A) 1.2 k/uL (1.0-4.8); Lymphocytes % (A) 25 %; MCH 29.4 pg (25.0-35.0); MCHC 33.1 g/dL (31.0-37.0); MCV 88.8 fL (80.0-100.0); Mean Platelet Volume 7.2; Monocytes # (A) 0.2 k/uL (0-1.0); Monocytes % (A) 5 %; Neutrophils # (A) 3.1 k/uL (1.3-7.7); Neutrophils % (A) 65 %; Platelet Count 263 k/uL (150-450); RDW 15.2 % (11.5-15.5); WBC 4.8 k/uL (3.8-10.6)
[2023-05-05 20:08] LABS: ALT 18 U/L (4-49); AST 24 U/L (17-59); African American GFR (CKD) >90 (>60 ml/min/1.73 sqM); Albumin 4.2 g/dL (3.5-5.0); Alkaline Phosphatase 99 U/L (38-126); Anion Gap 13 mmol/L; Blood Urea Nitrogen 13 mg/dL (9-20); Calcium 8.9 mg/dL (8.4-10.2); Carbon Dioxide 23 mmol/L (22-30); Chloride 101 mmol/L (98-107); Glucose 144 mg/dL (74-99); Non-African American GFR(CKD) >90 (>60 ml/min/1.73 sqM); Phosphorus 4.5 mg/dL (2.5-4.5); Potassium 4.1 mmol/L (3.5-5.1); Sodium 137 mmol/L (137-145); Total Bilirubin 0.8 mg/dL (0.2-1.3)
[2023-05-05 20:14] LABS: Mucus,Urine Rare /hpf; Partial Thromboplastin Time 25.7 sec (22.0-30.0); Prothrombin Time 10.7 sec (10.0-12.5); RBC,Urine 4 /hpf (0-5); Squamous Epithelial Cell,Urine 2 /hpf (0-4); WBC,Urine 9 /hpf (0-5)
[2023-05-05 20:18] LABS: Color,Urine Yellow
[2023-05-05 20:19] LABS: Appearance,Urine Clear (Clear); Bilirubin,Urine Negative (Negative); Blood,Urine Negative (Negative); Glucose,Urine (UA) 4+ (Negative); Ketones,Urine Negative (Negative); Leukocyte Esterase,Urine Moderate (Negative); Nitrite,Urine Negative (Negative); PH, Urine 5.5 (5.0-8.0); Protein,Urine Negative (Negative); Urobilinogen,Urine <2.0 mg/dL (<2.0)
--- NOTE | 2023-05-05 20:27 | CT ---
EXAMINATION TYPE: CT brain miller torrez DATE OF EXAM: 05/05/2023 COMPARISON: None HISTORY: Syncope and dizziness. Denies LOC, history of TIA. CT DLP: 1530.[address] of the brain was performed. The ventricles, basal cisterns and sulci overlying the cerebral convexities demonstrate mild enlargem ent. There is no evidence for intracranial hemorrhage or sulcal effacement. There is decreased attenuatio n about the periventricular white matter and deep white matter of both cerebral hemispheres, compatib le with chronic small vessel ischemia. Changes of ACDF C3-4 and decompressive laminectomy. No mass effects are seen. If symptoms persist consider MRI. Osseous calvarium is intact. IMPRESSION: 1. Age related atrophic and chronic small vessel ischemic change without acute intracranial process seen at this time. CT Cervical Spine: Unenhanced CT of the cervical spine was performed with bone and soft tissue window settings submitted . Coronal and sagittal reconstruction is obtained. There is normal alignment and prevertebral soft tissues. No evidence for acute cervical fracture . Scattered degenerative disc disease and spondylosis. Biapical scarring. IMPRESSION: 1. No evidence for acute fracture or subluxation of the cervical spine.
--- NOTE | 2023-05-05 20:37 | XR ---
EXAMINATION TYPE: XR chest 2V DATE OF EXAM: 05/05/2023 COMPARISON: 04/04/2023 HISTORY: Shortness of breath TECHNIQUE: Frontal and lateral views of the chest are obtained. FINDINGS: Scattered senescent parenchymal changes noted. Hyperinflation compatible with COPD. No evidence for infiltrate. No evidence for atelectasis. Heart size is stable. Mediastinal structures are stable and grossly unremarkable. No evidence for hilar prominence. Degenerative changes dorsal spine. IMPRESSION: 1. No evidence for acute pulmonary disease.
[2023-05-05] MEDS ORDERED: MECLIZINE 12.5 MG TAB PO STA (22:27)
[2023-05-05 22:54] VITALS: BP 126/69; PULSE 65
== END 2023-05-05 23:25 | disposition home or self-care (01) ==
LOC: EC 18:07
DX: R42 Dizziness and giddiness (principal); E11.9 Type 2 diabetes mellitus without complications; E78.5 Hyperlipidemia, unspecified; I10 Essential (primary) hypertension; I25.2 Old myocardial infarction; F32.A Depression, unspecified; Z79.899 Other long term (current) drug therapy; Z79.4 Long term (current) use of insulin; Z88.5 Allergy status to narcotic agent
CPT/HCPCS: 36415; 70450; 71046; 72125; 80053; 81001; 83605; 83735; 84100; 84484; 85025; 85610; 85730; 93005; 99284

== ENCOUNTER 2023-09-06 15:15 | Emergency (ER) | payer OTHER ==
--- NOTE | 2023-09-06 15:33 | ED ---
Wound/Laceration HPI - General Chief Complaint: Wound/Laceration Stated Complaint: Finger Injury Time Seen by Provider: 09/06/23 15:17 Source: patient, RN notes reviewed Mode of arrival: ambulatory Limitations: no limitations - History of Present Illness Initial Comments: 77-year-old male presents emergency department complaint of left hand laceration. Patient states that he was using a table saw states the board caught he went to grab it and states he has laceration to his digits 2 3 and 4. He is not exactly sure when his last tetanus was. Patient offers no other associated symptoms states bleeding is controlled. - Related Data Home Medications Medication Instructions Recorded Confirmed Amitriptyline HCl [Elavil] 10 mg PO HS 01/03/15 03/08/15 Capsaicin Cream [Trixaicin Cream] 1 applic TOPICAL TID PRN 01/03/15 03/08/15 Donepezil HCl [Aricept] 5 mg PO HS 01/03/15 03/08/15 Gabapentin 1,200 mg PO TID 01/03/15 03/08/15 Ibuprofen [Motrin] 600 mg PO Q8HR PRN 01/03/15 03/08/15 Insulin NPH Human Isophane 50 unit SQ BID 01/03/15 03/08/15 [NovoLIN N] Isosorbide Mononitrate [Isosorbide 30 mg PO DAILY 01/03/15 03/08/15 Mononitrate ER] Lidocaine 5% Patch [Lidoderm] 1 patch TOPICAL DAILY 01/03/15 03/08/15 Losartan Potassium 50 mg PO DAILY 01/03/15 03/08/15 Metoprolol Tartrate [Lopressor] 25 mg PO BID 01/03/15 03/08/15 Nitroglycerin Sl Tabs [Nitrostat] 0.4 mg SUBLINGUAL Q5M PRN 01/03/15 03/08/15 Pravastatin Sodium [Pravachol] 20 mg PO DAILY 01/03/15 03/08/15 Ranitidine HCl [Zantac] 150 mg PO BID 01/03/15 03/08/15 Terazosin HCl 1 mg PO HS 01/03/15 03/08/15 Previous Rx's Medication Instructions Recorded Cyclobenzaprine [Flexeril] 10 mg PO TID #14 tab 03/09/15 Hydrocodone/Acetaminophen [[place] 1 each PO Q6HR PRN #20 tab 03/09/15 5-325] Sulfamethox-Tmp 800-160Mg [Bactrim 1 tab PO Q12HR #14 tab 11/01/18 DS 800-160 mg] Cephalexin [Keflex] 500 mg PO Q6HR 7 Days #28 cap 11/04/18 diphenhydrAMINE [Benadryl] 25 mg PO BID PRN 5 Days #10 capsule 11/04/18 predniSONE [Deltasone] 20 mg PO DAILY 5 Days #5 tab 11/04/18 Nirmatrelvir/Ritonavir [Paxlovid 1 each PO ONCE #1 pack 04/04/23 2X150 mg-100 mg (Eua)] Meclizine [Antivert] 25 mg PO BID PRN #10 tab 05/05/23 Amoxic-Pot Clav 875-125Mg 1 tab PO Q12HR #14 tab 09/06/23 [Augmentin 875-125] Allergies Allergy/AdvReac Type Severity Reaction Status Date / Time morphine Allergy Rash/Hives Verified 09/06/23 15:19 oxycodone AdvReac Confusion Verified 09/06/23 15:19 Review of Systems ROS Statement: Those systems with pertinent positive or pertinent negative responses have been documented in the HPI. ROS Other: All systems not noted in ROS Statement are negative. Past Medical History Past Medical History: Chest Pain / Angina, CVA/TIA, Dementia, Diabetes Mellitus, Hyperlipidemia, Hypertension, Myocardial Infarction ([place]) Additional Past Medical History / Comment(s): back pain, AAA Last Myocardial Infarction Date:: 2010 History of Any Multi-Drug Resistant Organisms: None Reported Past Surgical History: Back Surgery, Heart Catheterization With Stent, Joint Replacement, Orthopedic Surgery Past Anesthesia/Blood Transfusion Reactions: No Reported Reaction Date of Last Stent Placement:: 1999 Past Psychological History: Depression, PTSD Smoking Status: Never smoker Past Alcohol Use History: None Reported Past Drug Use History: None Reported General Exam Limitations: no limitations General appearance: alert, in no apparent distress Head exam: Present: atraumatic, normocephalic, normal inspection Neck exam: Present: normal inspection, full ROM. Absent: tenderness, meningismus, lymphadenopathy Respiratory exam: Present: normal lung sounds bilaterally. Absent: respiratory distress, wheezes, rales, rhonchi, stridor Cardiovascular Exam: Present: regular rate, normal rhythm, normal heart sounds. Absent: systolic murmur, diastolic murmur, rubs, gallop, clicks Extremities exam: Present: other (Left hand there is a 2 cm laceration of the fourth digit at the DIP there is superficial laceration of the third digit and a 2 cm near avulsion skin laceration on the second digit) Skin exam: Present: warm, dry, intact, normal color. Absent: rash Course Vital Signs 09/06/23 09/06/23 15:17 16:24 Temperature 97.9 F 98.1 F Pulse Rate 81 76 Respiratory 20 18 Rate Blood Pressure 136/67 132/76 O2 Sat by Pulse 99 97 Oximetry Procedures - Laceration Laceration #1 Consent Obtained: verbal consent Indication: laceration Site: hand (Fourth digit) Size (cm): 2 Description: irregular Depth: simple, single layer Anesthetic Used: lidocaine 1%, without epi Anesthesia Technique: local infiltration Amount (mls): 3 Pre-repair: wound explored, irrigated extensively, deep structures intact Type of Sutures: nylon Size of Sutures: 4-0 Number of Sutures: 5 Technique: simple, interrupted Patient Tolerated Procedure: well, no complications Laceration #2 Consent Obtained: verbal consent Indication: laceration Site: hand (Second digit) Size (cm): 2 Description: avulsion, irregular Depth: simple, single layer Anesthetic Used: lidocaine 1%, lidocaine 2% Anesthesia Technique: local infiltration Amount (mls): 3 Pre-repair: wound explored, irrigated extensively, deep structures intact Type of Sutures: nylon Size of Sutures: 4-0 Number of Sutures: 4 Technique: simple, interrupted Patient Tolerated Procedure: well, no complications Medical Decision Making - Medical Decision Making Was pt. sent in by a medical professional or institution (, PA, CHARGE ACCOUNT IDENTIFICATION CLERK, urgent care, hospital, or residential...) When possible be specific @ -No Did you speak to anyone other than the patient for history (EMS, parent, family, police, friend...)? What history was obtained from this source @ -No Did you review nursing and triage notes (agree or disagree)? Why? @ -I reviewed and agree with nursing and triage notes Were old charts reviewed (outside hosp., previous admission, EMS record, old EKG, old radiological studies, urgent care reports/EKG's, residential records)? Report findings @ -No old charts were reviewed Differential Diagnosis (chest pain, altered mental status, abdominal pain women, abdominal pain men, vaginal bleeding, weakness, fever, dyspnea, syncope, headache, dizziness, GI bleed, back pain, seizure, CVA, palpatations, mental health, musculoskeletal)? @ -Skin avulsion, laceration, finger fracture EKG interpreted by me (3pts min.). @ -As above X-rays interpreted by me (1pt min.). @ -None done CT interpreted by me (1pt min.). @ -None done U/S interpreted by me (1pt. min.). @ -None done What testing was considered but not performed or refused? (CT, X-rays, U/S, labs)? Why? @ -None What meds were considered but not given or refused? Why? @ -None Did you discuss the management of the patient with other professionals (professionals i.e. , PA, CHARGE ACCOUNT IDENTIFICATION CLERK, lab, RT, psych nurse, social media sr strategy manager, surg nurse, teacher, classifications officer cc/cm, housing case manager)? Give summary @ -No Was smoking cessation discussed for >3mins.? @ -No Was critical care preformed (if so, how long)? @ -No Were there social determinants of health that impacted care today? How? (Homelessness, low income, unemployed, alcoholism, drug addiction, transportatio n, low edu. Level, literacy, decrease access to med. care, shelter, rehab)? @ -No Was there de-escalation of care discussed even if they declined (Discuss DNR or withdrawal of care, Hospice)? DNR status @ -No What co-morbidities impacted this encounter? (DM, HTN, Smoking, COPD, CAD, Cancer, CVA, ARF, Chemo, Hep., AIDS, mental health diagnosis, sleep apnea, morbid obesity)? @ -None Was patient admitted / discharged? Hospital course, mention meds given and route, prescriptions, significant lab abnormalities, going to OR and other pertinent info. @ -Discharge patient's tetanus is updated lacerations were approximated patient did have skin avulsion and unable to completely closed patient placed on Augmentin return transfer discussed Undiagnosed new problem with uncertain prognosis? @ -No Drug Therapy requiring intensive monitoring for toxicity (Heparin, Nitro, Insulin, Cardizem)? @ -No Were any procedures done? @ -No Diagnosis/symptom? @ -Finger lacerations Acute, or Chronic, or Acute on Chronic? @ -Acute Uncomplicated (without systemic symptoms) or Complicated (systemic symptoms)? @ -Uncomplicated Side effects of treatment? @ -No Exacerbation, Progression, or Severe Exacerbation? @ -No Poses a threat to life or bodily function? How? (Chest pain, [place], [place], pneumonia, PE, COPD, DKA, ARF, appy, cholecystitis, CVA, Diverticulitis, Homicidal, Suicidal, threat to staff... and all critical care pts) @ -No Disposition Clinical Impression: Laceration of finger, left, Multiple lacerations Disposition: HOME SELF-CARE Condition: Stable Instructions (If sedation given, give patient instructions): Care For Your Stitches (ED), Finger Laceration (ED) Additional Instructions: Have sutures removed in 10 to 14 days. please return to the Emergency Department if symptoms worsen or any other concerns. Prescriptions: Amoxic-Pot Clav 875-125Mg [Augmentin 875-125] 1 tab PO Q12HR #14 tab Is patient prescribed a controlled substance at d/c from ED?: No Referrals: [facility],Clinic [REFERRING] - 1-2 days Time of Disposition: 16:13
[2023-09-06] MEDS: DIPH,PERTUS(ACELL)TETVAC-LF 0.5 ML VIAL IM ONE (15:39)
[2023-09-06] MEDS: LIDOCAINE 1% INJ 10MG/ML (20 ML MDV) SQ ONE (15:39)
[2023-09-06] MEDS: AMOXIC-POT CLAV 875-125MG 1 EACH TAB PO STA (16:21)
[2023-09-06] MEDS: BACITRACIN OINT 1 EACH PACKET TOPICAL ONE (16:21)
[2023-09-06 16:35] VITALS: BP 132/76; PULSE 76; RESP 18; TEMP 98.1
--- NOTE | 2023-09-06 18:19 | XR ---
EXAMINATION TYPE: XR hand complete LT DATE OF EXAM: 09/06/2023 3:38 PM CLINICAL INDICATION:Male, 77 years old with history of finger laceration, tablesaw; [facility] COMPARISON: None TECHNIQUE: 3 views of the left hand. FINDINGS: Mild soft tissue irregularities in the distal third and fourth digits and possibly second digit, like ly from the current trauma. No radiopaque foreign body is seen. No acute fracture or dislocation is seen. No osseous defects. There are mild/moderate osteoarthritic changes throughout the hand and wrist. IMPRESSION: As above.
== END 2023-09-06 16:41 | disposition home or self-care (01) ==
LOC: EC 15:15
DX: S61.211A Laceration without foreign body of left index finger without damage to nail, initial encounter (principal); S61.213A Laceration without foreign body of left middle finger without damage to nail, initial encounter; S61.215A Laceration without foreign body of left ring finger without damage to nail, initial encounter; Z88.5 Allergy status to narcotic agent; Z23 Encounter for immunization; W27.0XXA Contact with workbench tool, initial encounter
CPT/HCPCS: 73130; 90715; 12002; 99283; 90471; J2001

== ENCOUNTER 2023-12-14 11:33 | Emergency (ER) | payer OTHER ==
[2023-12-14 11:54] VITALS: PULSE 70; TEMP 98.2
--- NOTE | 2023-12-14 12:28 | ED ---
Fall HPI - General Chief Complaint: Fall Stated Complaint: fall Time Seen by Provider: 12/14/23 11:58 Source: patient, RN notes reviewed, old records reviewed Mode of arrival: ambulatory Limitations: no limitations - History of Present Illness Initial Comments: This is a 78-year-old male to the ER today. Patient presents today for evaluation regards to right right below his right eye around his entire eye. 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, 24 hours PRESS OFFBEARER, # days PRESS OFFBEARER Place Fall Occurred: home Loss of Consciousness: none Prolonged Down Time?: no Symptoms Prior to Fall: none Location: head, face, chest Severity: moderate, severe Severity scale (1-10): 8 Quality: burning Context: tripped/slipped Associated Symptoms: denies - Related Data Home Medications Medication Instructions Recorded Confirmed Amitriptyline HCl [Elavil] 10 mg PO HS 01/03/15 03/08/15 Capsaicin Cream [Trixaicin Cream] 1 applic TOPICAL TID PRN 01/03/15 03/08/15 Donepezil HCl [Aricept] 5 mg PO HS 01/03/15 03/08/15 Gabapentin 1,200 mg PO TID 01/03/15 03/08/15 Ibuprofen [Motrin] 600 mg PO Q8HR PRN 01/03/15 03/08/15 Insulin NPH Human Isophane 50 unit SQ BID 01/03/15 03/08/15 [NovoLIN N] Isosorbide Mononitrate [Isosorbide 30 mg PO DAILY 01/03/15 03/08/15 Mononitrate ER] Lidocaine 5% Patch [Lidoderm] 1 patch TOPICAL DAILY 01/03/15 03/08/15 Losartan Potassium 50 mg PO DAILY 01/03/15 03/08/15 Metoprolol Tartrate [Lopressor] 25 mg PO BID 01/03/15 03/08/15 Nitroglycerin Sl Tabs [Nitrostat] 0.4 mg SUBLINGUAL Q5M PRN 01/03/15 03/08/15 Pravastatin Sodium [Pravachol] 20 mg PO DAILY 01/03/15 03/08/15 Ranitidine HCl [Zantac] 150 mg PO BID 01/03/15 03/08/15 Terazosin HCl 1 mg PO HS 01/03/15 03/08/15 Previous Rx's Medication Instructions Recorded Cyclobenzaprine [Flexeril] 10 mg PO TID #14 tab 03/09/15 Hydrocodone/Acetaminophen [[place] 1 each PO Q6HR PRN #20 tab 03/09/15 5-325] Sulfamethox-Tmp 800-160Mg [Bactrim 1 tab PO Q12HR #14 tab 11/01/18 DS 800-160 mg] Cephalexin [Keflex] 500 mg PO Q6HR 7 Days #28 cap 11/04/18 diphenhydrAMINE [Benadryl] 25 mg PO BID PRN 5 Days #10 capsule 11/04/18 predniSONE [Deltasone] 20 mg PO DAILY 5 Days #5 tab 11/04/18 Nirmatrelvir/Ritonavir [Paxlovid 1 each PO ONCE #1 pack 04/04/23 2X150 mg-100 mg (Eua)] Meclizine [Antivert] 25 mg PO BID PRN #10 tab 05/05/23 Amoxic-Pot Clav 875-125Mg 1 tab PO Q12HR #14 tab 09/06/23 [Augmentin 875-125] Amoxic-Pot Clav 875-125Mg 1 tab PO Q12HR #20 tablet 12/14/23 [Augmentin 875-125] Allergies Allergy/AdvReac Type Severity Reaction Status Date / Time morphine Allergy Rash/Hives Verified 09/06/23 15:19 oxycodone AdvReac Confusion Verified 09/06/23 15:19 Review of Systems ROS Statement: Those systems with pertinent positive or pertinent negative responses have been documented in the HPI. ROS Other: All systems not noted in ROS Statement are negative. Past Medical History Past Medical History: Chest Pain / Angina, CVA/TIA, Dementia, Diabetes Mellitus, Hyperlipidemia, Hypertension, Myocardial Infarction ([place]) Additional Past Medical History / Comment(s): back pain, AAA Last Myocardial Infarction Date:: 2010 History of Any Multi-Drug Resistant Organisms: None Reported Past Surgical History: Back Surgery, Heart Catheterization With Stent, Joint Replacement, Orthopedic Surgery Past Anesthesia/Blood Transfusion Reactions: No Reported Reaction Date of Last Stent Placement:: 1999 Past Psychological History: Depression, PTSD Smoking Status: Never smoker Past Alcohol Use History: None Reported Past Drug Use History: None Reported General Exam Limitations: no limitations General appearance: alert, in no apparent distress Head exam: Present: atraumatic, normocephalic, normal inspection Eye exam: Present: normal appearance, PERRL, EOMI. Absent: scleral icterus, conjunctival injection, periorbital swelling ENT exam: Present: normal exam, mucous membranes moist Neck exam: Present: normal inspection. Absent: tenderness, meningismus, lymphadenopathy Respiratory exam: Present: normal lung sounds bilaterally. Absent: respiratory distress, wheezes, rales, rhonchi, stridor Cardiovascular Exam: Present: regular rate, normal rhythm, normal heart sounds. Absent: systolic murmur, diastolic murmur, rubs, gallop, clicks GI/Abdominal exam: Present: soft, normal bowel sounds. Absent: distended, tenderness, guarding, rebound, rigid Extremities exam: Present: normal inspection, full ROM, normal capillary refill. Absent: tenderness, pedal edema, joint swelling, calf tenderness Back exam: Present: normal inspection Neurological exam: Present: alert, oriented X3, CN II-XII intact Psychiatric exam: Present: normal affect, normal mood Skin exam: Present: warm, dry, intact, normal color. Absent: rash Course Vital Signs 12/14/23 12/14/23 11:51 14:09 Temperature 98.2 F Pulse Rate 70 Respiratory 20 16 Rate Blood Pressure 123/64 127/70 O2 Sat by Pulse 97 97 Oximetry - Reevaluation(s) Reevaluation #1: 12/15/23 20:30 Record is reviewed Reevaluation #2: 12/15/23 20:30 Patient symptoms improved Reevaluation #3: 12/15/23 20:30 Patient informed of results questions answered Reevaluation #4: Was pt. sent in by a medical professional or institution (, PA, MANAGEMENT DEPARTMENT CHAIR, urgent care, hospital, or shelter...) When possible be specific @ -no Did you speak to anyone other than the patient for history (EMS, parent, family, police, friend...)? What history was obtained from this source @ -no Did you review nursing and triage notes (agree or disagree)? Why? @ -agree Are old charts reviewed (outside hosp., previous admission, EMS record, old EKG, old radiological studies, urgent care reports/EKG's, shelter records)? Report findings @ -yes Differential Diagnosis (chest pain, altered mental status, abdominal pain women, abdominal pain men, vaginal bleeding, weakness, fever, dyspnea, syncope, headache, dizziness, GI bleed, back pain, seizure, CVA, palpatations, mental health, musculoskeletal)? @ -prior EKG interpreted by me (3pts min.). @ -yes X-rays interpreted by me (1pt min.). @ -yes negative for acute disease CT interpreted by me (1pt min.). @ -Yes positive for facial fractures U/S interpreted by me (1pt. min.). @ -no What testing was considered but not performed or refused? (CT, X-rays, U/S, labs)? Why? @ -none What meds were considered but not given or refused? Why? @ -none Did you discuss the management of the patient with other professionals (professionals i.e. , PA, MANAGEMENT DEPARTMENT CHAIR, lab, RT, psych nurse, older adult social work specialist, make up artist, teacher, quality officer, disease case manager rn)? Give summary @ -no Was smoking cessation discussed for >3mins.? @ -no Was critical care preformed (if so, how long)? @ -no Were there social determinants of health that impacted care today? How? (Homelessness, low income, unemployed, alcoholism, drug addiction, transportation, low edu. Level, literacy, decrease access to med. care, senior living, rehab)? @ -none Was there de-escalation of care discussed even if they declined (Discuss DNR or withdrawal of care, Hospice)? DNR status @ -no What co-morbidities impacted this encounter? (DM, HTN, Smoking, COPD, CAD, Cancer, CVA, ARF, Chemo, Hep., AIDS, mental health diagnosis, sleep apnea, morbid obesity)? @ -none Was patient admitted / discharged? Hospital course, mention meds given and route, prescriptions, significant lab abnormalities, going to OR and other pertinent info. @ - 78 male to ER with fall fall with left-sided rib contusion and pain, positive facial fracture can follow-up as an outpatient with primary care for further evaluation and management, patient is placed on antibiotics Discharge Undiagnosed new problem with uncertain prognosis? @ -no Drug Therapy requiring intensive monitoring for toxicity (Heparin, Nitro, Insulin, Cardizem)? @ -no Were any procedures done? @ -no Diagnosis/symptom? @ -Fall with facial fractures Acute, or Chronic, or Acute on Chronic? @ -Acute Uncomplicated (without systemic symptoms) or Complicated (systemic symptoms)? @ -Complicated Side effects of treatment? @ -no Exacerbation, Progression, or Severe Exacerbation? @ -exacerbation Poses a threat to life or bodily function? How? (Chest pain, [place], [place], pneumonia, PE, COPD, DKA, ARF, appy, cholecystitis, CVA, Diverticulitis, Homicidal, Suicidal, threat to staff... and all critical care pts) @ -yes facial fractures Medical Decision Making - Medical Decision Making 78 male to ER with fall fall with left-sided rib contusion and pain, positive facial fracture can follow-up as an outpatient with primary care for further evaluation and management, patient is placed on antibiotics - Radiology Data Radiology results: report reviewed (Brain and C-spine facial bones positive for right sinus fracture nondisplaced, chest x-ray is negative for rib fracture), image reviewed Disposition Clinical Impression: Facial fracture, Fall, Contusion of rib on left side Disposition: HOME SELF-CARE Condition: Good Instructions (If sedation given, give patient instructions): Facial Fracture (ED) Prescriptions: Amoxic-Pot Clav 875-125Mg [Augmentin 875-125] 1 tab PO Q12HR #20 tablet Is patient prescribed a controlled substance at d/c from ED?: No Referrals: [facility],Clinic [Primary Care Provider] - 1-2 days Time of Disposition: 13:30
--- NOTE | 2023-12-14 13:20 | XR ---
EXAMINATION TYPE: XR ribs LT w pa chest xray DATE OF EXAM: 12/14/2023 1:01 PM CLINICAL INDICATION:Male, 78 years old with history of fall; COMPARISON: 04/27/2023 TECHNIQUE: XR ribs LT w pa chest xray; Frontal and oblique views of the ribs with frontal chest radio graph. FINDINGS: The ribs have a normal appearance. No evidence of fracture. Overall, the lungs are clear. The cardiac silhouette is normal in size. The remaining osseous structures are intact. Fixation arnulfo dware in the spine appears intact. Rotator cuff repair anchor in the right shoulder. IMPRESSION: No acute osseous pathology.
--- NOTE | 2023-12-14 13:33 | CT ---
EXAMINATION TYPE: CT brain cspine wo con, CT facial bones wo con DATE OF EXAM: 12/14/2023 COMPARISON: 05/05/2023 HISTORY: 78-year-old male pain after Fall CT DLP: 956.3 mGycm Automated exposure control for dose reduction was used. Technique: Examination of the head was done in axial plane without intravenous contrast. Coronal and sagittal reconstructions performed. CT of the cervical spine was obtained in axial plane without intravenous injection of contrast mater ial. Coronal and sagittal reformatted images were obtained from the axial views for evaluation of f ractures, spinal alignment and canal. CT of the facial bones without contrast. Coronal and sagittal reconstructions performed. FINDINGS: Head: There is no evidence of acute intracranial hemorrhage, acute ischemic changes, mass, mass-effect, or extra-axial fluid collection. There is no effacement of cerebral sulci or basal subarachnoid cister ns. There is no hydrocephalus. There is no midline shift. James-white matter distinction is preserv ed. Mild generalized supratentorial volume loss. Symmetric scattered calcifications in the carotid siphon s. No calvarial fracture seen. Mastoid air cells and middle ear cavities are clear. Facial bones: Right-sided premaxillary soft tissue swelling. Extensive subcutaneous emphysema tracking up and down the right side of the face and along the right adventure challenge instructor space and preseptal soft tissues. There is a depressed but nondisplaced fracture of the anterior wall of the right maxillary sinus. Some layerin g hemorrhagic fluid is present within the right maxillary sinus. The mandible, TMJs, pterygoid plates, zygomatic arches appear intact. No nasal bone or orbital fractu re or other facial bone fracture seen. Remainder of the paranasal sinuses are well pneumatized. Slight rightward nasal septal deviation. Cervical spine: No craniocervical junction of the body, predental space widening, or prevertebral soft tissue swellin g. Degenerative change of the C1 dens articulation. Patient status post C3-C4 ACDF. Laminectomy change from C4 through C6 levels. Disc osteophyte complex and ligamentum flavum thickening intravenous to mild spinal canal stenosis C2 -C3. Alignment is maintained. Moderate degenerative disc disease along the nonfused levels. Scattered facet and uncovertebral joint arthropathy is present. No acute fracture seen of the cervical spine. Moderate bilateral neuroforaminal stenosis C4-C5 and right greater than left C5-C6. Sagittal and coronal reformatted images confirm above findings. COMBINED IMPRESSION: 1. No acute intracranial abnormality seen. 2. Depressed, nondisplaced fracture anterior wall right maxillary sinus. Prominent subcutaneous emphy sema tracking along the right side of the face, adventure challenge instructor space, and preseptal region due to sinus c ommunication. Some layering blood in the right maxillary sinus. 3. No acute fracture or malalignment of the cervical spine. C3-C4 ACDF and laminectomy changes C4-C6 levels. Moderate spondylotic change along the nonfused levels.
[2023-12-14] MEDS: AMOXIC-POT CLAV 875-125MG 1 EACH TAB PO STA (14:06)
[2023-12-14 14:10] VITALS: BP 127/70; RESP 16
== END 2023-12-14 14:10 | disposition home or self-care (01) ==
LOC: EC 11:33
DX: S02.92XA Unspecified fracture of facial bones, initial encounter for closed fracture (principal); Z88.5 Allergy status to narcotic agent; Z88.8 Allergy status to other drugs, medicaments and biological substances; X58.XXXA Exposure to other specified factors, initial encounter
CPT/HCPCS: 70450; 70486; 72125; 99284

== ENCOUNTER 2024-04-10 06:34 | Emergency (ER) | payer OTHER ==
[2024-04-10 06:39] VITALS: RESP 18; TEMP 98.2
--- NOTE | 2024-04-10 06:59 | ED ---
Skin/Abscess/FB HPI - General Chief complaint: Skin/Abscess/Foreign Body Stated complaint: Head injury Time Seen by Provider: 04/10/24 06:41 Source: patient, RN notes reviewed Mode of arrival: ambulatory Limitations: no limitations - History of Present Illness Initial comments: 78-year-old male presents emergency department chief complaint of wound on his head. Patient states this is happened in the past when he changes his shampoos. Patient states he bumped it and there is a large amount of puslike drainage. Patient denies any fevers he states area is sore he is currently on treatment for liver cancer. Patient denies any prior lesions there denies any prior skin cancer. - Related Data Home Medications Medication Instructions Recorded Confirmed Amitriptyline HCl [Elavil] 10 mg PO HS 01/03/15 03/08/15 Capsaicin Cream [Trixaicin Cream] 1 applic TOPICAL TID PRN 01/03/15 03/08/15 Donepezil HCl [Aricept] 5 mg PO HS 01/03/15 03/08/15 Gabapentin 1,200 mg PO TID 01/03/15 03/08/15 Ibuprofen [Motrin] 600 mg PO Q8HR PRN 01/03/15 03/08/15 Insulin NPH Human Isophane 50 unit SQ BID 01/03/15 03/08/15 [NovoLIN N] Isosorbide Mononitrate [Isosorbide 30 mg PO DAILY 01/03/15 03/08/15 Mononitrate ER] Lidocaine 5% Patch [Lidoderm] 1 patch TOPICAL DAILY 01/03/15 03/08/15 Losartan Potassium 50 mg PO DAILY 01/03/15 03/08/15 Metoprolol Tartrate [Lopressor] 25 mg PO BID 01/03/15 03/08/15 Nitroglycerin Sl Tabs [Nitrostat] 0.4 mg SUBLINGUAL Q5M PRN 01/03/15 03/08/15 Pravastatin Sodium [Pravachol] 20 mg PO DAILY 01/03/15 03/08/15 Ranitidine HCl [Zantac] 150 mg PO BID 01/03/15 03/08/15 Terazosin HCl 1 mg PO HS 01/03/15 03/08/15 Previous Rx's Medication Instructions Recorded Cyclobenzaprine [Flexeril] 10 mg PO TID #14 tab 03/09/15 Hydrocodone/Acetaminophen [[place] 1 each PO Q6HR PRN #20 tab 03/09/15 5-325] Sulfamethox-Tmp 800-160Mg [Bactrim 1 tab PO Q12HR #14 tab 11/01/18 DS 800-160 mg] Cephalexin [Keflex] 500 mg PO Q6HR 7 Days #28 cap 11/04/18 diphenhydrAMINE [Benadryl] 25 mg PO BID PRN 5 Days #10 capsule 11/04/18 predniSONE [Deltasone] 20 mg PO DAILY 5 Days #5 tab 11/04/18 Nirmatrelvir/Ritonavir [Paxlovid 1 each PO ONCE #1 pack 04/04/23 2X150 mg-100 mg (Eua)] Meclizine [Antivert] 25 mg PO BID PRN #10 tab 05/05/23 Amoxic-Pot Clav 875-125Mg 1 tab PO Q12HR #14 tab 09/06/23 [Augmentin 875-125] Amoxic-Pot Clav 875-125Mg 1 tab PO Q12HR #20 tablet 12/14/23 [Augmentin 875-125] Cephalexin [Keflex] 500 mg PO Q6HR #40 cap 04/10/24 Allergies Allergy/AdvReac Type Severity Reaction Status Date / Time morphine Allergy Rash/Hives Verified 04/10/24 06:39 oxycodone AdvReac Confusion Verified 04/10/24 06:39 Review of Systems ROS Statement: Those systems with pertinent positive or pertinent negative responses have been documented in the HPI. ROS Other: All systems not noted in ROS Statement are negative. Past Medical History Past Medical History: Cancer, Chest Pain / Angina, CVA/TIA, Dementia, Diabetes Mellitus, Hyperlipidemia, Hypertension, Myocardial Infarction ([place]) Additional Past Medical History / Comment(s): back pain, AAA, liver cancer Last Myocardial Infarction Date:: 2010 History of Any Multi-Drug Resistant Organisms: None Reported Past Surgical History: Back Surgery, Heart Catheterization With Stent, Joint Replacement, Orthopedic Surgery Past Anesthesia/Blood Transfusion Reactions: No Reported Reaction Date of Last Stent Placement:: 1999 Past Psychological History: Depression, PTSD Smoking Status: Never smoker Past Alcohol Use History: None Reported Past Drug Use History: None Reported General Exam Limitations: no limitations General appearance: alert, in no apparent distress Head exam: Present: atraumatic, normocephalic, normal inspection Eye exam: Present: normal appearance, PERRL, EOMI. Absent: scleral icterus, conjunctival injection, periorbital swelling ENT exam: Present: normal exam, mucous membranes moist Neck exam: Present: normal inspection, full ROM. Absent: tenderness, meningismus, lymphadenopathy Respiratory exam: Present: normal lung sounds bilaterally. Absent: respiratory distress, wheezes, rales, rhonchi, stridor Cardiovascular Exam: Present: regular rate, normal rhythm, normal heart sounds. Absent: systolic murmur, diastolic murmur, rubs, gallop, clicks Course Vital Signs 04/10/24 06:36 Temperature 98.2 F Pulse Rate 67 Respiratory 18 Rate Blood Pressure 169/93 O2 Sat by Pulse 99 Oximetry Medical Decision Making - Medical Decision Making Was pt. sent in by a medical professional or institution (, PA, RELIEF MASTER, urgent care, hospital, or intermediate...) When possible be specific @ -No Did you speak to anyone other than the patient for history (EMS, parent, family, police, friend...)? What history was obtained from this source @ -No Did you review nursing and triage notes (agree or disagree)? Why? @ -I reviewed and agree with nursing and triage notes Were old charts reviewed (outside hosp., previous admission, EMS record, old EKG, old radiological studies, urgent care reports/EKG's, intermediate records)? Report findings @ -No old charts were reviewed Differential Diagnosis (chest pain, altered mental status, abdominal pain women, abdominal pain men, vaginal bleeding, weakness, fever, dyspnea, syncope, headache, dizziness, GI bleed, back pain, seizure, CVA, palpatations, mental health, musculoskeletal)? @ -Skin abscess,, cellulitis skin lesion, melanoma, basal cell carcinoma EKG interpreted by me (3pts min.). @ -None X-rays interpreted by me (1pt min.). @ -None done CT interpreted by me (1pt min.). @ -None done U/S interpreted by me (1pt. min.). @ -None done What testing was considered but not performed or refused? (CT, X-rays, U/S, labs)? Why? @ -None What meds were considered but not given or refused? Why? @ -None Did you discuss the management of the patient with other professionals (professionals i.e. , PA, RELIEF MASTER, lab, RT, psych nurse, social media assistant, commercial marketing specialist, teacher, licensed loan officer, geriatric case manager)? Give summary @ -No Was smoking cessation discussed for >3mins.? @ -No Was critical care preformed (if so, how long)? @ -No Were there social determinants of health that impacted care today? How? (Homelessness, low income, unemployed, alcoholism, drug addiction, transportation, low edu. Level, literacy, decrease access to med. care, senior living, rehab)? @ -No Was there de-escalation of care discussed even if they declined (Discuss DNR or withdrawal of care, Hospice)? DNR status @ -No What co-morbidities impacted this encounter? (DM, HTN, Smoking, COPD, CAD, Cancer, CVA, ARF, Chemo, Hep., AIDS, mental health diagnosis, sleep apnea, morbid obesity)? @ -None Was patient admitted / discharged? Hospital course, mention meds given and route, prescriptions, significant lab abnormalities, going to OR and other pertinent info. @ -Discharge patient presented for wound, abscess on his scalp. Patient does not have a fluctuant area has a current scab with surrounding cellulitis. P atient was started on oral antibiotics, warm compresses and advised to follow-up with dermatology. Undiagnosed new problem with uncertain prognosis? @ -No Drug Therapy requiring intensive monitoring for toxicity (Heparin, Nitro, Insulin, Cardizem)? @ -No Were any procedures done? @ -No Diagnosis/symptom? @Abscess, Acute, or Chronic, or Acute on Chronic? @ -Acute Uncomplicated (without systemic symptoms) or Complicated (systemic symptoms)? @ -Uncomplicated Side effects of treatment? @ -No Exacerbation, Progression, or Severe Exacerbation? @ -No Poses a threat to life or bodily function? How? (Chest pain, [place], [place], pneumonia, PE, COPD, DKA, ARF, appy, cholecystitis, CVA, Diverticulitis, Homicidal, Suicidal, threat to staff... and all critical care pts) @ -No Disposition Clinical Impression: Scalp abscess Disposition: HOME SELF-CARE Condition: Stable Instructions (If sedation given, give patient instructions): Abscess (ED) Additional Instructions: Please return to the Emergency Department if symptoms worsen or any other concerns. Prescriptions: Cephalexin [Keflex] 500 mg PO Q6HR #40 cap Is patient prescribed a controlled substance at d/c from ED?: No Referrals: [facility],Clinic [Primary Care Provider] - 1-2 days Time of Disposition: 06:59
[2024-04-10 07:55] VITALS: BP 155/72; PULSE 66
== END 2024-04-10 07:55 | disposition home or self-care (01) ==
LOC: EC 06:34
DX: L02.811 Cutaneous abscess of head [any part, except face] (principal); Z88.5 Allergy status to narcotic agent; Z88.8 Allergy status to other drugs, medicaments and biological substances; Z86.73 Personal history of transient ischemic attack (TIA), and cerebral infarction without residual deficits
CPT/HCPCS: 99283